=== PATIENT | female | born 1970 | race Caucasian/White ===

== ENCOUNTER → 2016-09-05 | Outpatient (CLI) | payer OTHER ==
--- NOTE | 2016-09-05 08:56 | US ---
Ultrasound Pelvis Complete (Transabdominal and Endovaginal) Including Duplex/Doppler Imaging History: Persistent abdominal pain. R 10.2 Technique: Transabdominal and endovaginal ultrasound images were obtained. Endovaginal images obtain ed for better evaluation of the uterine myometrium and adnexa. Duplex/Doppler imaging of adnexa. Findings: Uterus measures 7 x 5 x 6 cm. Endometrial thickness is 8 mm. No definite uterine leiomyoma ta. Right ovary measures 2.1 x 1.9 x 1.3 cm. Left ovary measures 3.1 x 3 x 2.0 cm. Left ovary involuting complex cyst or follicle measuring 1.5 x 1.3 x 1.3 cm. No significant free fluid in the pelvis. [place] r Doppler flow to both ovaries without torsion. Prominent vessels both sides of the pelvis suggesting pelvic congestion. Impression: 1. Prominent vessels in both sides of the pelvis suggesting pelvic congestion 2. Left ovary involuting complex cyst or follicle measuring 1.5 x 1.3 x 1.3 cm. 3. No ovarian torsion or significant free fluid. 4. No uterine leiomyomata.
== END ==
LOC: BMCIMAGING 08:01
PROVIDERS: ATTEND Internal Medicine
DX: R10.2 Pelvic and perineal pain (principal); I86.2 Pelvic varices; N83.202 Unspecified ovarian cyst, left side

== ENCOUNTER → 2016-09-21 | Outpatient (CLI) | payer OTHER | LOC: BMCIMAGING 13:23 | DX: Z12.39 Encounter for other screening for malignant neoplasm of breast (principal); R92.2 Inconclusive mammogram | CPT/HCPCS: G0204 ==

== ENCOUNTER → 2017-10-11 | Outpatient (CLI) | payer OTHER | LOC: BMCIMAGING 19:01 | PROVIDERS: ATTEND Family Medicine | DX: S82.52XA Displaced fracture of medial malleolus of left tibia, initial encounter for closed fracture (principal); S92.152A Displaced avulsion fracture (chip fracture) of left talus, initial encounter for closed fracture ==

== ENCOUNTER → 2017-11-24 | Outpatient (CLI) | payer OTHER | LOC: BMCIMAGING 13:24 | PROVIDERS: ATTEND Internal Medicine | DX: Z12.31 Encounter for screening mammogram for malignant neoplasm of breast (principal) ==

== ENCOUNTER → 2018-03-01 | Outpatient (CLI) | payer OTHER | LOC: FIMAGING 13:10 | PROVIDERS: ATTEND Podiatrist Foot & Ankle Surgery | DX: M19.071 Primary osteoarthritis, right ankle and foot (principal); R22.41 Localized swelling, mass and lump, right lower limb ==

== ENCOUNTER → 2018-05-17 | Outpatient (CLI) | payer OTHER | LOC: BMCIMAGING 09:28 | PROVIDERS: ATTEND Physician Assistant Medical | DX: M25.562 Pain in left knee (principal) ==

== ENCOUNTER 2018-05-25 21:35 | Emergency (ER) | payer OTHER ==
[~2018-05-25 21:35] MED LIST: GADOBUTROL 10 ML VIAL IVP ONE
--- NOTE | 2018-05-25 22:38 | EDPHY ---
H & P Stated Complaint: needs MRI finding Time Seen by Provider: 05/25/18 22:14 HPI/ROS: Chief Complaint: Knee pain, MRI follow-up HPI: 48-year-old woman's been having left knee pain for the last week. She was seen at [facility] urgent care yesterday and had fluid aspirated which she says clotted. She was sent for an MRI today. Apparently this was ordered as a stat read MRI. Radiologist was not able to get a hold of the ordering physician and without any further history instructed the patient to come the emergency depart for further evaluation. She denies any redness warmth fever or chills. She has been ambulating on it with some discomfort. No prior injuries. She says that she was told that they martha off clot from a bursa. ROS: 10 systems were reviewed and were negative except those elements noted in the HPI. PMH: Denies Social History: No smoking, no alcohol, no recreational drug use Family History: non-contributory Physical Exam: General: Awake, alert, no acute distress Left knee: There is mild swelling in the medial aspect of the knee and there is a puncture wound there from a aspiration. I do not see any evidence of an aspiration of a prepatellar bursa. The prepatellar region is nontender. The knee is not erythematous. It is not warm to touch. She is able to flex to 90 with some discomfort. She has negative anterior drawer sign. There is some tenderness with loading of the medial collateral ligament. There is some soft tissue swelling and tenderness. Is not fluctuant. There is no discharge. Skin: No rash - Personal History LMP (Females 10-55): Now Current Tetanus/Diphtheria Vaccine: Yes Current Tetanus Diphtheria and Acellular Pertussis (TDAP): Yes - Medical/Surgical History Hx Asthma: Yes Hx Chronic Respiratory Disease: No Hx Diabetes: No Hx Cardiac Disease: No Hx Renal Disease: No Hx Cirrhosis: No Hx Alcoholism: No Hx HIV/AIDS: No Hx Splenectomy or Spleen Trauma: No Other PMH: denies - Social History Smoking Status: Never smoked Constitutional: Initial Vital Signs Temperature (C) 36.8 C 05/25/18 21:45 Heart Rate 73 05/25/18 21:45 Respiratory Rate 16 05/25/18 21:45 Blood Pressure 136/78 H 05/25/18 21:45 O2 Sat (%) 97 05/25/18 21:45 O2 Delivery Mode Room Air Allergies/Adverse Reactions: Goat Cheese Allergy (Uncoded 05/25/18 21:47) Home Medications: Medication Instructions Recorded Albuterol 05/25/18 Medical Decision Making - Diagnostics Imaging Results: MRI results showed there is a small fluid collection medial left knee medial to the collateral ligament. There is complex fluid consistent with a hematoma. There is no ligament tear of the collateral ligaments or the cruciate ligaments. There is no internal joint inflammation. There is no osteomyelitis. Findings consistent with a hematoma. No evidence of infection. Study interpreted and discussed with Dr. Shaver. 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 Clinically there is certainly no findings suggestive of a septic joint or infection. MRI is also consistent with a hematoma but no infection. Patient is otherwise well- appearing. Will discharge her with follow up with Orthopedics, return for any infective symptoms as outlined in the discharge instructions. Departure - Departure Disposition: Home, Routine, Self-Care Clinical Impression: Traumatic hematoma of knee Condition: Good Instructions: Hematoma (ED) Additional Instructions: Follow up with orthopedic surgeon in 3-4 days for further evaluation. Return to the emergency department for increasing pain, redness, warmth, worsening swelling, fevers, chills, or any other concerns. Referrals: Yi Pringle MD [Primary Care Provider] - As per Instructions Raffy Stein MD [Medical Doctor] - As per Instructions
[2018-05-25 22:53] VITALS: BP 113/66
== END 2018-05-25 22:53 | disposition home or self-care (01) ==
DX: M25.562 Pain in left knee (principal); M79.81 Nontraumatic hematoma of soft tissue
CPT/HCPCS: A9585

== ENCOUNTER → 2018-05-25 | Outpatient (CLI) | payer OTHER | LOC: BMCIMAGING 09:14 | PROVIDERS: ATTEND Family Medicine | DX: R22.42 Localized swelling, mass and lump, left lower limb (principal) ==

== ENCOUNTER 2018-11-25 20:21 | Emergency (ER) | payer OTHER ==
--- NOTE | 2018-11-25 20:37 | EDPHY ---
H & P Stated Complaint: IRREGULAR HR Time Seen by Provider: 11/25/18 20:31 - Personal History LMP (Females 10-55): 8-14 Days Ago Current Tetanus Diphtheria and Acellular Pertussis (TDAP): Yes - Medical/Surgical History Hx Asthma: Yes Hx Chronic Respiratory Disease: No Hx Diabetes: No Hx Cardiac Disease: No Hx Renal Disease: No Hx Cirrhosis: No Hx Alcoholism: No Hx HIV/AIDS: No Hx Splenectomy or Spleen Trauma: No Other PMH: ASTHMA - Social History Smoking Status: Former smoker Constitutional: Initial Vital Signs Temperature (C) 36.6 C 11/25/18 20:24 Heart Rate 75 11/25/18 20:24 Respiratory Rate 16 11/25/18 20:24 Blood Pressure 150/78 H 11/25/18 20:24 O2 Sat (%) 97 11/25/18 20:24 O2 Delivery Mode Room Air Allergies/Adverse Reactions: Proton Pump Inhibitors Allergy (Verified 11/25/18 20:25) Goat Cheese Allergy (Uncoded 05/25/18 21:47) Home Medications: Medication Instructions Recorded Albuterol 05/25/18 Medical Decision Making ED Course/Re-evaluation: CHIEF COMPLAINT: Irregular heart rate HISTORY OF PRESENT ILLNESS: The patient is a 48 y/o female with a history of premature atrial contractions complaining of intermittent episodes of an irregular heart rate for the last several weeks. Last December, 1 year ago, the patient was diagnosed with PAC's when she was on a treadmill. She normally does not feel the PAC's. Several weeks ago she started drinking more coffee and noticed the irregular heart rate, which was abnormal. Today she noticed more episodes of the irregular heart rate which concerned her. No fever, headache, body aches, lightheadedness, chest pain, shortness of breath, cough, abdominal pain, urinary or bowel complaints, numbness, paresthesias. REVIEW OF SYSTEMS: A 10 point review of systems was performed and is negative with the exception of the elements mentioned in the history of present illness. PHYSICAL EXAM: HR, BP, O2 Sat, RR. Temp noted General Appearance: Alert, well hydrated, appropriate, and non-toxic appearing. Head: Atraumatic without scalp tenderness or obvious injury Eyes: Pupils equal, round, reactive to light and accommodation, EOMI, no trauma , no injection. Ears: Clear bilaterally, no perforation, normal landmarks Nose: Atraumatic, no rhinorrhea, clear. Throat: There is no erythema or exudates, no lesions, normal tonsils, mucus membranes moist. Neck: Supple, 2+ carotid upstroke, nontender, no lymphadenopathy. Respiratory: No retractions, no distress, no wheezes, and no accessory muscle use. Lungs are clear to auscultation bilaterally. Cardiovascular: Irregular rhythm with a compensatory pause, no murmurs, rubs, or gallops. Bilateral carotid, radial, dorsalis pedis, and posterior tibial pulses intact. Good capillary refill all extremities. Gastrointestinal: Abdomen is soft, nontender, non-distended, no masses, no rebound, no guarding, no peritoneal signs. Musculoskeletal: Normal active ROM of all extremities, atraumatic. Neurological: Alert, appropriate, and interactive. The patient has normal DTRs and non-focal cranial nerves, motor, sensory, and cerebellar exam. Skin: No rashes, good turgor, no nodules on palpation. Past medical history: Asthma, PAC's Past surgical history: Denies Family history: Denies Social history: Lives in [place], , employed DIAGNOSTICS/PROCEDURES/CRITICAL CARE TIME: EKG: The 12 lead EKG was interpreted by myself as sinus rhythm with a rate of 70 , atrial premature complexes. See hard copy and/or "tracemaster" electronic copy for interpretation. DIFFERENTIAL DIAGNOSIS: The differential diagnosis for the patient's irregular heart rate included but was not limited to various causes of PAC's, PVC's, sinus tachycardia such as dehydration and medicines, SVT, atrial flutter, atrial fibrillation, pulmonary causes. MEDICAL DECISION MAKING: The patient is a 48 y/o female with a history of premature atrial contractions presenting with intermittent episodes of an irregular heart rate for the last several weeks. Last December, 1 year ago, the patient was diagnosed with PAC's. On exam today she has an irregular rhythm with a compensatory pause. EKG ordered. 2032: I interpreted patient's EKG as sinus rhythm with a rate of 70, atrial premature complexes. 2045: Reassessed patient and discussed EKG findings. I have advised her to follow up with a cash room clerk to be fitted with a Halter monitor. As she plans to follow up with a cash room clerk this week, I will not start her on a beta priti. Return precautions provided; patient is comfortable with this plan. Departure - Departure Disposition: Home, Routine, Self-Care Clinical Impression: Atrial premature complexes Condition: Good Instructions: Premature Atrial Contractions (ED) Additional Instructions: 1. Follow-up with your primary doctor within 72 hours. 2. Return to the Emergency Department for fever, chest pain, shortness of breath , increasing pain or other worsening of condition. 3. Follow up with a cash room clerk for further testing, as soon as possible, within one week. Make sure to discuss a Halter monitor. Referrals: Yi Pringle MD [Primary Care Provider] - As per Instructions Antwan Ruby MD [Medical Doctor] - As per Instructions Report Scribed for: Maxim Watson Report Scribed by: Janay Cordova Date of Report: 11/25/18 Time of Report: 20:38
--- NOTE | 2018-11-25 20:40 | CPEKG ---
Test Reason : OPEN Blood Pressure : / mmHG Vent. Rate : 070 BPM Atrial Rate : 069 BPM P-R Int : 142 ms QRS Dur : 085 ms QT Int : 399 ms P-R-T Axes : 049 067 029 degrees QTc Int : 431 ms Sinus rhythm Atrial premature complexes Low voltage, precordial leads Confirmed by Maxim Watson ([id number]) on 11/25/2018 8:39:45 PM Referred By: Maxim Watson Confirmed By:Maxim Watson
[2018-11-25 20:58] VITALS: BP 114/77
== END 2018-11-25 20:58 | disposition home or self-care (01) ==
DX: I49.1 Atrial premature depolarization (principal)